=== PATIENT | male | born 1985 | race Caucasian/White ===

== ENCOUNTER 2016-05-03 10:30 | Observation (INO) | payer OTHER ==
[~2016-05-03] VITALS: Ht 185.4 cm; Wt 99.1 kg
[2016-05-03] VITALS (8 sets, daily range): BP systolic 110–141; BP diastolic 59–84
--- NOTE | 2016-05-03 11:06 | DIAGNOSTIC IMAGING REPORT ---
PROCEDURE: XR FOREARM - RIGHT INDICATION: TRAUMA/INJURY TECHNIQUE: AP and lateral views. COMPARISON: None. FINDINGS: Comminuted impaction fracture of the distal radius. IMPRESSION: 1. Comminuted impaction fracture distal radius.
--- NOTE | 2016-05-03 11:45 | DIAGNOSTIC IMAGING REPORT ---
PROCEDURE: CT CERVICAL SPINE W/O CONTRAST INDICATION: TRAUMA/INJURY TECHNIQUE: Noncontrast axial images with sagittal and coronal reformations. COMPARISON: None. FINDINGS: Osseous structures and disc spaces are normal. No evidence of an acute process or fracture. Alignment is normal. IMPRESSION: 1. Negative CT cervical spine. No evidence of an acute process or fracture.
--- NOTE | 2016-05-03 12:11 | ED CLINICAL REPORT ---
Clinical Report - Physicians/Mid Levels [facility] [address] [place] [address] 05/03/2016 10:30 Patient: SUZANNE BERG Time Seen: 1032. Arrived- By ambulance. Historian- patient and EMS personnel. HISTORY OF PRESENT ILLNESS Location of injuries- right wrist. Chief Complaint: FALL. This occurred just prior to arrival. Occurred at work. Fell 8-10 feet and landed on a hard surface. The patient complains of moderate pain. No blow to the head, neck pain, loss of consciousness or seizure. Not dazed. (PT initially c/o pain, per medics, but pt currently denies pain.). REVIEW OF SYSTEMS No numbness, dizziness, loss of vision, hearing loss or chest pain. No difficulty breathing, weakness, headache, nausea or abdominal pain. No laceration, fever, vomiting or urinary problems. All systems otherwise negative, except as recorded above. PAST HISTORY Problems: no known problems. Additional Surgeries: no known surgeries. Medications: None. Allergies: No Known Drug Allergy. SOCIAL HISTORY Never smoker. Occasional alcohol use. No drug use. ADDITIONAL NOTES The nursing notes have been reviewed. PHYSICAL EXAM Vital Signs: 05/03/2016 10:43 BP: 109/65. HR: 81. RR: 20. O2 saturation: 95%. Temp: 97.5 F. Have been reviewed. Appearance: Alert. Oriented X3. No acute distress. (PT is in obvious discomfort.). Head: Head non-tender. No swelling of head. Eyes: Pupils equal, round and reactive to light. EOM intact. ENT: No dental injury. Neck: Neck non-tender. (ROM not tested, secondary to c-spine precautions.). CVS: Heart sounds normal. Pulses normal. Respiratory: Breath sounds normal. Chest nontender. Abdomen: No visible injury. Soft and nontender. Back: No tenderness. Skin: Skin intact. Skin warm and dry. Normal skin color. Normal skin turgor. Extremities: Right wrist: moderate tenderness, swelling and deformity consistent with a distal forearm fracture located in the dorsal and volar aspect of the wrist. Limited ROM. Neurovascular intact distally. No erythema, laceration, abrasion, ecchymosis or puncture wound. No foreign body. No joint effusion. Pelvis stable. No lower extremity edema. Neuro: Oriented X 3. No motor deficit. No sensory deficit. LABS, X-RAYS, AND EKG Chest X-ray: No acute disease. Normal lung markings present. Normal heart size. Mediastinum normal. Great vessels normal. Soft tissues normal. No infiltrate. No fracture. No bony lesion present. Views: AP (portable). Technique: good. The X-rays were independently viewed by me, interpreted by the radiologist and contemporaneously by me and discussed with the radiologist. Prior films were not available for comparison. Rt Elbow X-ray: No fracture. Normal alignment. No bony lesion, air in the soft tissue or foreign body. Soft tissues normal. Joint spaces normal. Views: 2 view elbow series. Technique: good. The X-rays were independently viewed by me, interpreted by the radiologist and contemporaneously by me and discussed with the radiologist. Prior films were not available for comparison. Rt Wrist X-ray: Displaced, comminuted, intraarticular fracture of the distal radius. No angulated right radius fracture. Joint spaces abnormal. Air present in the soft tissue. Foreign body present. Soft tissue swelling. Views: AP, lateral and oblique. Technique: good. The X-rays were independently viewed by me, interpreted by the radiologist and contemporaneously by me and discussed with the radiologist. Prior films were not available for comparison. CT C-Spine: No acute findings. Soft tissue normal. No fracture or subluxation. No bony lesion. The study was independently viewed by me, interpreted by the radiologist and contemporaneously by me and discussed with the radiologist. Prior studies were not available for comparison. CT Abdomen: Normal study. Normal aorta. Normal liver, spleen, pancreas, gallbladder and adrenals. Normal kidneys. Bladder normal. No mass. No free fluid. No fracture or dislocation. Study type: trauma. Abdominal CT performed with IV contrast. The study was independently viewed by me, interpreted by the radiologist and contemporaneously by me and discussed with the radiologist. Prior studies were not available for comparison. Laboratory Tests: [id number]: (DONTAE: 05/04/2016 05:55) ( MsgRcvd 05/04/2016 07:51) Final results Test Result Flag Units (Reference) C-REACTIVE PROTEIN 2.3 H mg/dL (0.0-0.9) CBC w Diff: (DONTAE: 05/03/2016 10:40) ( [facility] 05/03/2016 11:55) Final results Test Result Flag Units (Reference) WHITE BLOOD COUNT 6.5 K/uL (4.5-11.5) RED BLOOD COUNT 4.69 M/uL (4.50-5.90) HEMOGLOBIN 14.2 gm/dL (13.5-17.5) HEMATOCRIT 42.0 % (41.0-53.0) MEAN CELL VOLUME 90 fL (80-100) MEAN CORPUSCULAR HGB 30 pg (26-34) MEAN CORPUSCULAR HGB CONC 34 g/dL (31-37) RED CELL DISTRIBUTION WIDTH 12.5 % (11.6-14.8) PLATELET COUNT 199 K/uL (150-400) NEUTROPHIL % 45.3 L % (50-75) LYMPH % 45.7 H % (25-40) MONO % 6.7 % (3-14) EOSINOPHIL % 2.1 % (0-4) BASOPHIL % 0.2 % (0-2) PT with INR: (DONTAE: 05/03/2016 10:40) ( [facility] 05/03/2016 11:58) Final results Test Result Flag Units (Reference) INR 1.0 (0.8-1.2) Low Intensity Therapy: INR 1.5-2.0 PT range 18.5-23.1Mod.Intensity Therapy: INR 2.0-3.0 PT range 23.1-31.5High Intensity Therapy: INR 2.5-3.5 PT range 27.4-35.5High Intensity Therapy 2: INR 3.0-4.0 PT range 31.5-39.3 CMP: (DONTAE: 05/03/2016 10:40) ( [facility] 05/03/2016 11:56) Final results Test Result Flag Units (Reference) GLUCOSE 114 H mg/dL (70-110) BUN 16 mg/dL (7-18) CREATININE 1.0 mg/dL (0.6-1.3) Estimated GFR >60 mL/min Estimated GFR- >60 mL/min Note: Persistent reduction over 3 months in eGFR<60 mL/min/1.73 m2 defines CKD. Patients with eGFR values>=60 mL/min/1.73 m2 may also have CKD if evidence ofpersistent proteinuria. Additional information may be foundat [email or web address].org. SODIUM 139 mmol/L (136-145) POTASSIUM 3.7 mmol/L (3.5-5.1) CHLORIDE 103 mmol/L (98-107) CARBON DIOXIDE 25 mmol/L (21-32) CALCIUM 9.1 mg/dL (8.5-10.1) TOTAL PROTEIN 7.5 g/dL (6.4-8.2) ALBUMIN 4.1 g/dL (3.3-5.0) BILIRUBIN, TOTAL 0.5 mg/dL (0.0-1.0) ALKALINE PHOSPHATASE 68 U/L (46-116) AST (SGOT) 26 U/L (15-37) ALT (SGPT) 47 U/L (12-78) . Pulse Oximetry: 05/03/2016 10:43 O2 saturation: 95%. (FIO2 - room air). Interpretation: normal. PROGRESS AND PROCEDURES Course of Care: Pt was given IV Dilaudid and worked up for his injuries. Other than the R wrist fx, pt's work-up was negative. Pt later began to complain of R elbow pain, but x-ray of this was also negative. Pt was evaluated by ortho in the ED, and transferred straight to the OR for repair of his fx. Discussed case with health care provider (Courtney/ortho). Reviewed test results and need for additional work-up. Agreed upon treatment plan and decision to admit. Health care provider will see patient in ED. Patient counseled in person regarding the patient's stable but serious condition, test results, diagnosis and need for admission and surgery. Concerns were addressed. Old medical records reviewed. Disposition: Admitted to Acute Care. Condition: stable. CLINICAL IMPRESSION Comminuted and intraarticular fracture of the distal right radius. Fall from scaffold. (Electronically signed by Anahy Bradley MD 05/07/2016 7:33) Addenda SUZANNE Mohamud VisitID: [id number] Date: 05/03/2016 05/03/2016 13:32 Discharge vital signs: BP: 126/69 P: 98 O2: 100 Pain: 4/10 RR: 18 (Electronically signed by Steffanie Eubanks R.N. 05/03/2016 13:32)
--- NOTE | 2016-05-03 12:11 | ED CLINICAL REPORT ---
Clinical Report - Physicians/Mid Levels [facility] [address] [place] [address] 05/03/2016 10:30 Patient: SUZANNE BERG Time Seen: 1032. Arrived- By ambulance. Historian- patient and EMS personnel. HISTORY OF PRESENT ILLNESS Location of injuries- right wrist. Chief Complaint: FALL. This occurred just prior to arrival. Occurred at work. Fell 8-10 feet and landed on a hard surface. The patient complains of moderate pain. No blow to the head, neck pain, loss of consciousness or seizure. Not dazed. (PT initially c/o pain, per medics, but pt currently denies pain.). REVIEW OF SYSTEMS No numbness, dizziness, loss of vision, hearing loss or chest pain. No difficulty breathing, weakness, headache, nausea or abdominal pain. No laceration, fever, vomiting or urinary problems. All systems otherwise negative, except as recorded above. PAST HISTORY Problems: no known problems. Additional Surgeries: no known surgeries. Medications: None. Allergies: No Known Drug Allergy. SOCIAL HISTORY Never smoker. Occasional alcohol use. No drug use. ADDITIONAL NOTES The nursing notes have been reviewed. PHYSICAL EXAM Vital Signs: 05/03/2016 10:43 BP: 109/65. HR: 81. RR: 20. O2 saturation: 95%. Temp: 97.5 F. Have been reviewed. Appearance: Alert. Oriented X3. No acute distress. (PT is in obvious discomfort.). Head: Head non-tender. No swelling of head. Eyes: Pupils equal, round and reactive to light. EOM intact. ENT: No dental injury. Neck: Neck non-tender. (ROM not tested, secondary to c-spine precautions.). CVS: Heart sounds normal. Pulses normal. Respiratory: Breath sounds normal. Chest nontender. Abdomen: No visible injury. Soft and nontender. Back: No tenderness. Skin: Skin intact. Skin warm and dry. Normal skin color. Normal skin turgor. Extremities: Right wrist: moderate tenderness, swelling and deformity consistent with a distal forearm fracture located in the dorsal and volar aspect of the wrist. Limited ROM. Neurovascular intact distally. No erythema, laceration, abrasion, ecchymosis or puncture wound. No foreign body. No joint effusion. Pelvis stable. No lower extremity edema. Neuro: Oriented X 3. No motor deficit. No sensory deficit. LABS, X-RAYS, AND EKG Chest X-ray: No acute disease. Normal lung markings present. Normal heart size. Mediastinum normal. Great vessels normal. Soft tissues normal. No infiltrate. No fracture. No bony lesion present. Views: AP (portable). Technique: good. The X-rays were independently viewed by me, interpreted by the radiologist and contemporaneously by me and discussed with the radiologist. Prior films were not available for comparison. Rt Elbow X-ray: No fracture. Normal alignment. No bony lesion, air in the soft tissue or foreign body. Soft tissues normal. Joint spaces normal. Views: 2 view elbow series. Technique: good. The X-rays were independently viewed by me, interpreted by the radiologist and contemporaneously by me and discussed with the radiologist. Prior films were not available for comparison. Rt Wrist X-ray: Displaced, comminuted, intraarticular fracture of the distal radius. No angulated right radius fracture. Joint spaces abnormal. Air present in the soft tissue. Foreign body present. Soft tissue swelling. Views: AP, lateral and oblique. Technique: good. The X-rays were independently viewed by me, interpreted by the radiologist and contemporaneously by me and discussed with the radiologist. Prior films were not available for comparison. CT C-Spine: No acute findings. Soft tissue normal. No fracture or subluxation. No bony lesion. The study was independently viewed by me, interpreted by the radiologist and contemporaneously by me and discussed with the radiologist. Prior studies were not available for comparison. CT Abdomen: Normal study. Normal aorta. Normal liver, spleen, pancreas, gallbladder and adrenals. Normal kidneys. Bladder normal. No mass. No free fluid. No fracture or dislocation. Study type: trauma. Abdominal CT performed with IV contrast. The study was independently viewed by me, interpreted by the radiologist and contemporaneously by me and discussed with the radiologist. Prior studies were not available for comparison. Laboratory Tests: [id number]: (DONTAE: 05/04/2016 05:55) ( MsgRcvd 05/04/2016 07:51) Final results Test Result Flag Units (Reference) C-REACTIVE PROTEIN 2.3 H mg/dL (0.0-0.9) CBC w Diff: (DONTAE: 05/03/2016 10:40) ( [facility] 05/03/2016 11:55) Final results Test Result Flag Units (Reference) WHITE BLOOD COUNT 6.5 K/uL (4.5-11.5) RED BLOOD COUNT 4.69 M/uL (4.50-5.90) HEMOGLOBIN 14.2 gm/dL (13.5-17.5) HEMATOCRIT 42.0 % (41.0-53.0) MEAN CELL VOLUME 90 fL (80-100) MEAN CORPUSCULAR HGB 30 pg (26-34) MEAN CORPUSCULAR HGB CONC 34 g/dL (31-37) RED CELL DISTRIBUTION WIDTH 12.5 % (11.6-14.8) PLATELET COUNT 199 K/uL (150-400) NEUTROPHIL % 45.3 L % (50-75) LYMPH % 45.7 H % (25-40) MONO % 6.7 % (3-14) EOSINOPHIL % 2.1 % (0-4) BASOPHIL % 0.2 % (0-2) PT with INR: (DONTAE: 05/03/2016 10:40) ( [facility] 05/03/2016 11:58) Final results Test Result Flag Units (Reference) INR 1.0 (0.8-1.2) Low Intensity Therapy: INR 1.5-2.0 PT range 18.5-23.1Mod.Intensity Therapy: INR 2.0-3.0 PT range 23.1-31.5High Intensity Therapy: INR 2.5-3.5 PT range 27.4-35.5High Intensity Therapy 2: INR 3.0-4.0 PT range 31.5-39.3 CMP: (DONTAE: 05/03/2016 10:40) ( [facility] 05/03/2016 11:56) Final results Test Result Flag Units (Reference) GLUCOSE 114 H mg/dL (70-110) BUN 16 mg/dL (7-18) CREATININE 1.0 mg/dL (0.6-1.3) Estimated GFR >60 mL/min Estimated GFR- >60 mL/min Note: Persistent reduction over 3 months in eGFR<60 mL/min/1.73 m2 defines CKD. Patients with eGFR values>=60 mL/min/1.73 m2 may also have CKD if evidence ofpersistent proteinuria. Additional information may be foundat [email or web address].org. SODIUM 139 mmol/L (136-145) POTASSIUM 3.7 mmol/L (3.5-5.1) CHLORIDE 103 mmol/L (98-107) CARBON DIOXIDE 25 mmol/L (21-32) CALCIUM 9.1 mg/dL (8.5-10.1) TOTAL PROTEIN 7.5 g/dL (6.4-8.2) ALBUMIN 4.1 g/dL (3.3-5.0) BILIRUBIN, TOTAL 0.5 mg/dL (0.0-1.0) ALKALINE PHOSPHATASE 68 U/L (46-116) AST (SGOT) 26 U/L (15-37) ALT (SGPT) 47 U/L (12-78) . Pulse Oximetry: 05/03/2016 10:43 O2 saturation: 95%. (FIO2 - room air). Interpretation: normal. PROGRESS AND PROCEDURES Course of Care: Pt was given IV Dilaudid and worked up for his injuries. Other than the R wrist fx, pt's work-up was negative. Pt later began to complain of R elbow pain, but x-ray of this was also negative. Pt was evaluated by ortho in the ED, and transferred straight to the OR for repair of his fx. Discussed case with health care provider (Courtney/ortho). Reviewed test results and need for additional work-up. Agreed upon treatment plan and decision to admit. Health care provider will see patient in ED. Patient counseled in person regarding the patient's stable but serious condition, test results, diagnosis and need for admission and surgery. Concerns were addressed. Old medical records reviewed. Disposition: Admitted to Acute Care. Condition: stable. CLINICAL IMPRESSION Comminuted and intraarticular fracture of the distal right radius. Fall from scaffold. (Electronically signed by Anahy Bradley MD 05/07/2016 7:33) Addenda SUZANNE Mohamud VisitID: [id number] Date: 05/03/2016 05/03/2016 13:32 Discharge vital signs: BP: 126/69 P: 98 O2: 100 Pain: 4/10 RR: 18 (Electronically signed by Steffanie Eubanks R.N. 05/03/2016 13:32)
--- NOTE | 2016-05-03 12:11 | ED ORDER SUMMARY ---
..... Patient: SUZANNE BERG OrderSheet [facility] VisitID: [id number] [address] [place] [address] 31y, M Registration Date/Time: 05/03/2016 ORDER SHEET Weight: 90.7 kg (stated) Allergies: No Known Drug Allergy GENERAL ORDERS: Forearm Right Urgent (10:41 05/03/2016 Shonda MORALES) (Ack 11:02 Francisca) (11:38 SStone R.N.) CT Cervical Spine wo Cont Urgent (10:41 05/03/2016 Shonda MORALES) (Ack 11:02 Francisca) (11:38 SStone R.N.) CT Abd/Pel w Cont (No) (N/A) Urgent (10:42 05/03/2016 Shonda MORALES) (Ack 11:02 Francisca) (11:38 SStone R.N.) NPO (10:45 05/03/2016 Shonda MORALES) (11:38 SStone R.N.) Elbow 3 or 4V Left Urgent (11:20 05/03/2016 SStone R.N. verbal order read back to Shonda MORALES) (Ack 11:22 Francisca) (12:22 SStone R.N.) Chest 1V Urgent (11:39 05/03/2016 Shonda MORALES) (Ack 12:00 Francisca) (12:22 SStone R.N.) CBC w Diff Urgent (11:40 05/03/2016 Shonda MORALES) (Ack 11:58 Francisca) (12:22 SStone R.N.) CMP Urgent (11:40 05/03/2016 Shonda MORALES) (Ack 11:58 Francisca) (12:22 SStone R.N.) PT with INR Urgent (11:40 05/03/2016 Shonda MORALES) (Ack 11:58 Francisca) (12:22 SStone R.N.) MEDICATION ORDERS: IV FLUIDS: IV NS : initial bolus 1000 mL (1000 mL/hr), then none - (NOW) (10:45 05/03/2016 Shonda MORALES) (11:20 SStone R.N.) Dilaudid IV 2 mg (HIGH ALERT MEDICATION, NOW) (10:45 05/03/2016 Shonda MORALES) (11:20 SStone R.N.) Toradol IV 30 mg (NOW) (10:45 05/03/2016 Shonda MORALES) (11:19 SStone R.N.) Zofran IV 4 mg (NOW) (10:57 05/03/2016 Shonda MORALES) (11:19 SStone R.N.) Dilaudid IV 1 mg (HIGH ALERT MEDICATION, NOW) (12:14 05/03/2016 Shonda MORALES) (12:23 SStone R.N.) Benadryl IV 25 mg (NOW) (12:23 05/03/2016 SStone R.N. verbal order read back to Shonda MORALES) (12:24 SStone R.N.) ORDER SHEET NOTES: [Electronically signed by Steffanie Eubanks R.N. (13:30 05/03/2016)] [Electronically signed by Anahy Bradley MD (07:33 05/07/2016)] [Electronically locked/signed by Steffanie Eubanks R.N. (13:30 05/03/2016)]
--- NOTE | 2016-05-03 12:11 | ED NURSING NOTES ---
Clinical Report - Nurses [place] [address] [place] [address] 05/03/2016 10:30 Patient: SUZANNE BERG TRIAGE Triage time 10:32. Acuity: LEVEL 3. Chief Complaint: FALL 8-10 FEET, onto a concrete surface and landed on their arms with hands extended. --10:41 Setffanie Eubanks R.N. 10:43 05/03/16. BP: 109/65. HR: 81. RR: 20. O2 saturation: 95%. Temp: 97.5 F. --10:47 Steffanie Eubanks R.N. Weight: 90.7 kg stated. Height/Length: 73 inches Per Patient. BMI: 26.4. --10:34 Steffanie Eubanks R.N. Medications None. --10:33 Steffanie Eubanks R.N. Allergies No Known Drug Allergy. --10:33 Steffanie Eubanks R.N. History Arrived by EMS, and (49). Historian: patient. This occurred just prior to arrival. The patient had loss of consciousness. (none). He has had extremity pain (Right wrist deformity). He has had back pain. Treatment GLOBAL PROGRAM DIRECTOR: Splint. See EMS report. Trauma activation: Pre-hospital notification of patient arrival was received. PAST MEDICAL HX: Negative. Tetanus status: more than 5 years ago. SURGERY HX: No history of previous surgery. SOCIAL HX: Never smoker. Alcohol use; consumes beer occasionally. No drug use. --10:41 Steffanie Eubanks R.N. Interventions ID band on patient. To treatment room. --10:41 Steffanie Eubanks R.N. PHYSICAL ASSESSMENT To room via stretcher. GENERAL / NEURO / PSYCH: Oriented X 4. HEENT: Pupils equal, round and reactive to light. RESPIRATORY: Respirations not labored. CVS: Normal heart rate and rhythm. GI / : Abdomen soft and nontender. EXTREMITIES: Limited ROM present in the right wrist. Neuro-vascular status intact to the extremity. SKIN: Skin is warm and dry. --10:42 Steffanie Eubanks R.N. NURSING PROGRESS NOTES Patient placed on backboard (removed by Dr. Machado). Cold pack applied. Two patient identifiers checked. Call light placed in reach. Side rails up x 2. Bed placed in lowest position. ED physician notified. --10:43 Steffanie Eubanks R.N. 11:00 05/03/2016 Site #1 started via IV in the left antecubital space with an 18g angiocath. Saline lock flushed with 10 mL saline. --11:19 Steffanie Eubanks R.N. 11:05 05/03/2016 Dilaudid (HYDROmorphone HCl PF) IVP 2 mg given over 2 minute(s) via site #1. --11:20 Steffanie Eubanks R.N. 11:19 05/03/2016 Zofran (Ondansetron HCl) IVP 4 mg given. via site #1. --11:19 Steffanie Eubanks R.N. 11:19 05/03/2016 Toradol IVP 30 mg given over 2 minute(s) via site #1. --11:19 Steffanie Eubanks R.N. 11:20 05/03/2016 Started bag #1 1000 mL IV Fluids IV NS (Saline); at 1000 mL/hr over 1 hour(s) via site #1 --11:20 Steffanie Eubanks R.N. ( Patient out to CT). --11:38 Steffanie Eubanks R.N. ( Ortho at bedside.). --12:00 Steffanie Eubanks R.N. late entry - 11:05: Pt. was given Dilaudid 2 mg, zofran 4 mg and toradol 30 mg. Within 30 seconds the patient's left arm distal to the IV site turned bright red, warm to touch and had raised hives. was notified, verbal order for 25 mg of Benadryl given. --12:00 Steffanie Eubanks R.N. late entry - 1115 Pt. BP 80s after 2 mg Dilaudid, IV bolus started. BP up to 119/. --12:01 Steffanie Eubanks R.N. 12:01 05/03/16. BP: 117/68. HR: 102. RR: 21. O2 saturation: 93%. Pain level now: 06/11. --12:02 Steffanie Eubanks R.N. 11:30 05/03/16. Pain level now: 06/11. --12:03 Steffanie Eubanks R.N. ( C-collar removed by janette MORALES). --12:06 Steffanie Eubanks R.N. 11:10 05/03/2016 Benadryl (DiphenhydrAMINE HCl) IVP 25 mg given over 2 minute(s) via site #1. --12:24 Steffanie Eubanks R.N. 12:23 05/03/2016 Dilaudid (HYDROmorphone HCl PF) IVP 1 mg given over 2 minute(s) via site #1. --12:23 Steffanie Eubanks R.N. ( Silver colored bracelet cut off and given to cousin at bedside.). --12:34 Steffanie Eubanks R.N. 12:35 05/03/16. BP: 125/77. HR: 101. RR: 18. O2 saturation: 97%. --12:35 Steffanie Eubanks R.N. 13:00 05/03/2016 IV Fluids IV NS Discontinued: bag #1 infused. Total amount infused: 1000 mL. IV patency established. IV site checked: no pain, redness, or swelling. IV flushed thoroughly. --13:28 Steffanie Eubanks R.N. DISPOSITION / DISCHARGE Cardiac rhythm: normal sinus rhythm. Departure time: 13:26. Condition at departure: stable. Admitted to Acute Care via Surgery. Transported via stretcher by nurse and transport team. Report was given to a nurse in person. Report included patient's care, treatment, medications, reviewed medication reconcilliation, and condition (including any recent changes or anticipated changes). All questions were answered. Report was acknowledged. --13:27 Steffanie Eubanks R.N. Locked/Released at 05/03/2016 13:30 by Steffanie Eubanks R.N.
--- NOTE | 2016-05-03 12:11 | ED ORDER SUMMARY ---
..... Patient: SUZANNE BERG OrderSheet [facility] VisitID: [id number] [address] [place] [address] 31y, M Registration Date/Time: 05/03/2016 ORDER SHEET Weight: 90.7 kg (stated) Allergies: No Known Drug Allergy GENERAL ORDERS: Forearm Right Urgent (10:41 05/03/2016 Shonda MORALES) (Ack 11:02 Francisca) (11:38 SStone R.N.) CT Cervical Spine wo Cont Urgent (10:41 05/03/2016 Shonda MORALES) (Ack 11:02 Francisca) (11:38 SStone R.N.) CT Abd/Pel w Cont (No) (N/A) Urgent (10:42 05/03/2016 Shonda MORALES) (Ack 11:02 Francisca) (11:38 SStone R.N.) NPO (10:45 05/03/2016 Shonda MORALES) (11:38 SStone R.N.) Elbow 3 or 4V Left Urgent (11:20 05/03/2016 SStone R.N. verbal order read back to Shonda MORALES) (Ack 11:22 Francisca) (12:22 SStone R.N.) Chest 1V Urgent (11:39 05/03/2016 Shonda MORALES) (Ack 12:00 Francisca) (12:22 SStone R.N.) CBC w Diff Urgent (11:40 05/03/2016 Shonda MORALES) (Ack 11:58 Francisca) (12:22 SStone R.N.) CMP Urgent (11:40 05/03/2016 Shonda MORALES) (Ack 11:58 Francisca) (12:22 SStone R.N.) PT with INR Urgent (11:40 05/03/2016 Shonda MORALES) (Ack 11:58 Francisca) (12:22 SStone R.N.) MEDICATION ORDERS: IV FLUIDS: IV NS : initial bolus 1000 mL (1000 mL/hr), then none - (NOW) (10:45 05/03/2016 Shonda MORALES) (11:20 SStone R.N.) Dilaudid IV 2 mg (HIGH ALERT MEDICATION, NOW) (10:45 05/03/2016 Shonda MORALES) (11:20 SStone R.N.) Toradol IV 30 mg (NOW) (10:45 05/03/2016 Shonda MORALES) (11:19 SStone R.N.) Zofran IV 4 mg (NOW) (10:57 05/03/2016 Shonda MORALES) (11:19 SStone R.N.) Dilaudid IV 1 mg (HIGH ALERT MEDICATION, NOW) (12:14 05/03/2016 Shonda MORALES) (12:23 SStone R.N.) Benadryl IV 25 mg (NOW) (12:23 05/03/2016 SStone R.N. verbal order read back to Shonda MORALES) (12:24 SStone R.N.) ORDER SHEET NOTES: [Electronically signed by Steffanie Eubanks R.N. (13:30 05/03/2016)] [Electronically signed by Anahy Bradley MD (07:33 05/07/2016)] [Electronically locked/signed by Steffanie Eubanks R.N. (13:30 05/03/2016)]
--- NOTE | 2016-05-03 12:13 | DIAGNOSTIC IMAGING REPORT ---
PROCEDURE: CT ABD/PELVIS WITH CONTRAST CLINICAL INDICATION: Fell 10 feet, initial encounter TECHNIQUE: 100 ml of Isovue 300 were injected intravenously and axial images were obtained of the entire abdomen and pelvis with sagittal and coronal reformations. COMPARISON: None. FINDINGS: ABDOMEN: Lung bases are clear. Heart size is normal. Liver, gallbladder, pancreas, spleen (splenule) adrenal glands, kidneys and abdominal aorta are normal. Nonspecific bowel gas pattern. PELVIS: Normal appendix. There is no pelvic mass or free fluid. Slight irregularity of the right T12 facets suggestive of volume averaging artifact rather than a nondisplaced fracture. Normal alignment of the lumbar spine with Schmorl 's nodes from T11-L3. IMPRESSION: 1. No acute changes 2. Results discussed with Dr. Bradley All CT scans at this facility use dose modulation, iterative reconstruction, and/or weight-based dosing when appropriate to reduce radiation dose to as low as reasonably achievable.
--- NOTE | 2016-05-03 13:23 | DIAGNOSTIC IMAGING REPORT ---
PROCEDURE: XR CHEST 1 VIEW INDICATION: Preop, chest pain. Initial encounter. TECHNIQUE: Portable AP view 12:21 p.m. COMPARISON: None. FINDINGS: Poor inspiration but lungs are clear. Heart and mediastinum are normal. Thorax is normal. IMPRESSION: 1. Poor inspiration but otherwise negative chest.
--- NOTE | 2016-05-03 13:26 | DIAGNOSTIC IMAGING REPORT ---
PROCEDURE: XR ELBOW 3 OR 4 VIEWS - LEFT INDICATION: TRAUMA/INJURY TECHNIQUE: Five views COMPARISON: None. FINDINGS: Nondisplaced radial head fracture. There is no dislocation. Prominence of the anterior fat pad. IMPRESSION: 1. Nondisplaced left radial head fracture.
--- NOTE | 2016-05-03 13:52 | HISTORY AND PHYSICAL ---
ADMITTED: 05/03/2016 CHIEF COMPLAINT: 1. Right wrist pain HISTORY OF PRESENT ILLNESS: The patient was in his usual state of good health when he suffered a fall and landed on his outstretched right hand. He fell off the top of a trailer says about 8 or 10 feet. He denies any other serious nor even minor aches or pains. He has had a CT scan, which was basically from neck to pelvis and was reported by the radiologist as being negative and I did look at the actual views on the C- spine and do not see any fracture there. The patient does have a severe fracture of his distal right radius and is being admitted for repair of the same. MEDICAL/SURGICAL HISTORY: Past history is completely negative. MEDICATIONS: 1. He is on no medications. ALLERGIES: 1. HE HAS NO KNOWN ALLERGIES. SOCIAL HISTORY: The patient is a nonsmoker. FAMILY HISTORY: Noncontributory. REVIEW OF SYSTEMS: He has no other serious medical illnesses and specifically denied any heart, lung, kidney disease, any peptic ulcer disease, diabetes, AIDS, cancer, tumor, tuberculosis, peptic ulcer disease, hepatitis. His review of systems, he has had no loss of consciousness and he says he has no cough, congestion, chest pain, shortness of breath, did have an upper respiratory infection last week, but that has completely resolved now and he has not had any fever or chills. He has no nausea, vomiting, and has not had any diarrhea, has had no dysuria, has no other musculoskeletal complaints. PHYSICAL EXAMINATION: HEENT: Shows the head to be normocephalic and atraumatic. His eyes are clear. His hearing is grossly normal. There is no drainage from the ear canals. Mouth and posterior oropharynx are clear. The tongue is midline. The teeth are in good repair. NECK: He has no jugular venous distention. He is able to move his neck with minimal discomfort. BACK: There is no tenderness in the cervical spine or in the thoracic, lumbar or sacral spine or the CVA regions on both sides. ABDOMEN: Soft and flat. Bowel sounds are active. CHEST: Symmetrical, there is no tenderness to palpation of the rib cage. HEART: Regular rate and rhythm without murmur. LUNGS: Clear to auscultation. EXTREMITIES: Lower Extremities: He moves without any crepitation, without any discomfort whatsoever and has active dorsiflexion, plantarflexion of the toes. Upper Extremities: The right wrist demonstrates a typical silver fork type of deformity. There is some 2-3+ edema at the wrist and he is quite tender over the distal radius. More distally in the fingers, he has quite markedly diminished sensation in the thumb, index, and long finger. Sensation is relatively maintained in the ring and small finger. The fingers themselves are warm and pink. Capillary refilling is immediate. He has no open skin wounds, and x-ray show him to have a comminuted and displaced fracture involving the distal radius. IMPRESSION: 1. Comminuted displaced distal radius fracture with median nerve contusion, possible compartment syndrome. PLAN: For immediate surgery, reduction of the fracture, either external or internal fixation, depending on the findings of compartment pressure, measuring and if his compartment pressures are high enough it would be best to open and leave it open and probably put him in an external fixture for the present, but if they are not excessively high then we can do a plate and screw fixation and try to repair the fracture definitively at this point. I have explained all this to him and he accepts and agrees. He does have a concern about the cost of it and who would pay for it. He is from [place] and is concerned that his [place] [facility] would pay for the care here. I do not know whether it would or would not and I told that to him and also his friend who is with him, but I do believe it is in his best interest to have the problem taken care of as soon as possible, as there certainly is a risk of permanent nerve damage, which does not completely go away if we do the surgery urgently, but the sooner we can relieve the pressure on the nerve, the better for him and the more likely that he would recover. I did explain to him that I cannot promise that. There is a very real possibility he could have permanent numbness in the fingers and problems with the use of the hand and that it is unlikely he is going to regain completely normal function of it and particularly completely normal range of motion of it under any circumstances, but the best would be to deal with the problem as soon as possible and he understands this as well. Right now he is trying to decide whether to stay or to go. I hope that he will stay. I have encouraged him to do so and I explained that I think it is in his best interest and certainly there is a risk if he does not get the problem taken care of as soon as possible and he understands this as well.
--- NOTE | 2016-05-03 16:50 | Postoperative Progress Note ---
Postop Progress Note Preoperate Diagnosis: Fracture right radius, compartment syndrome RUE Postoperative Diagnosis: Same Surgeon: Yo Valdez MD Anesthesia: General ETT Findings: Comminuted displaced distal right radius fracture. Compartment syndrome right volar forearm Procedure: ORIF right radius, fasciotomy right forearm. Complications? No Condition: Stable EBL: 50cc Blood Administered: 0 Specimen(s) removed? No Grafts or Implants? Yes Graft/Implant type: Volar radius plate and screws . (See nursing notes for details of grafts/implants)
--- NOTE | 2016-05-03 19:37 | OPERATIVE REPORT ---
DATE OF SURGERY: 05/03/2016 SURGEON: BECKY DAVIS MD PREOPERATIVE DIAGNOSIS: 1. Comminuted and displaced distal right radius fracture and probable compartment syndrome, median nerve contusion of the right wrist and forearm POSTOPERATIVE DIAGNOSIS: 1. Comminuted displaced fracture of the distal right radius and compartment syndrome of the right forearm, median nerve contusion PROCEDURE PERFORMED: 1. Open reduction, internal fixation of the right distal radius fracture and fasciotomy CONDITION: He is in stable condition. ESTIMATED BLOOD LOSS: 50 mL. COMPLICATIONS: None. PATHOLOGY SPECIMEN: Sent to laboratory were none. SURGICAL TECHNIQUE: The patient was taken to the operating room, where he was given a general anesthetic and a tourniquet was applied on the right arm. The arm was prepped and draped in the usual sterile fashion. After the sterile prepping and draping of the arm we then made a curving longitudinal incision over the volar radial aspect of the forearm and extending down to the wrist. This was carried generally down through subcutaneous tissue and down to the level of the fracture. He had a badly comminuted fracture of his distal radius and we were able to provisionally reduce the fracture with longitudinal traction and some flexion and volarly directed pressure on the hand and wrist and then placed a plate from the [employer] set into place and secured it with a single screw through the slot, drilling with the supplied drill, measuring with the depth gauge and placing the appropriate length of screw. We then went to place the distal screws through the holes, drilling through the supplied guide and reducing the fragments as we went to try and secure them in anatomic alignment. We were able to get very close to perfect anatomic alignment at the joint surface with some residual dorsal comminution. The ulnar screw holes, not the most distal ones in the plate, but the second most distal ones in the plate, there were 2 of the screws that are angled at the joint enough that it could not be absolutely certain that they were not impinging on the joint and so I redrilled those and used nonlocking screws on those after we completed the rest of the fixation, but with that, we had very secure fixation of the fracture and I closed him then just with simple interrupted 3-0 nylon suture for the skin only, basically done a fasciotomy by opening the fascia, but even by closing the skin after we got the skin closed I checked him with a compartment pressure monitor and the compartment pressures were 38-39. In the volar compartment the dorsal compartment was fine, but the volar compartment, it was certainly pie and at risk of causing further damage as median nerve, he basically had absent sensation in the median nerve distribution and significant swelling. The compartment was pretty tense before we even started the procedure and actually by aligning the fracture and securing it, the pressure was left, but it was not still at a point I would consider acceptable and so we took out some of the central sutures, resutured just very loosely leaving the skin gapped open about 6-10 mm and went back and rechecked the pressures. With that we had skin covering the tendons and there just was exposed muscle and subcutaneous fat and with that, then the pressures were in the low 20s, 22-24 at most, and so we left it that, dressed him with Xeroform and an ABD and had very loosely applied Webril and a volar splint and then we again very loosely applied Modesto bandages to hold it in place and once that was set up, he was awakened. He will be taken to the recovery room.
[2016-05-04 02:22] VITALS: BP 114/66
[2016-05-04 07:17] VITALS: BP 104/64
--- NOTE | 2016-05-04 08:32 | Progress Note ---
Subjective General Afebrile NMV intact in RUE this am. Splint is intact C/O mild to moderate pain in right wrist and left elbow. The Xray images from surgery didn't save as expected so i ordered a new Xray this am. Xrays of the left elbow show an undisplaced fracture of the radial neck. He has just mild tenderness and minimal edema at the elbow. He already has an injury to the RUE that he won't be able to use it much so i have not casted the LUE. I did explain the situation to him that he will need to be very careful with the use of both UEs and avoid forceful use of them. He understands and accepts. i also explained he will need a wound closure at the right wrist in the next 10-14 days and he would like to return home to [place] for further treatment. He fidencio be DCd to the care of his cousin who will drive him home today. I told him he is welcome to return here for F/U if he is unable to find someone to care for him at home. No other c/o and he is sitting up eating his breakfast this am. DC home.
[2016-05-04] MEDS ORDERED: OXYCODONE/ACETA1 TA1 PO (08:35)
--- NOTE | 2016-05-04 08:37 | Provider's Discharge Care Plan ---
Problem, Goal, Plan Problem List 1. Fracture of right wrist 2. Fracture of radial neck, left, closed
--- NOTE | 2016-05-04 08:37 | Provider's Discharge Care Plan ---
Problem, Goal, Plan Problem List 1. Fracture of right wrist 2. Fracture of radial neck, left, closed
[2016-05-04 09:02] VITALS: BP 104/61
--- NOTE | 2016-05-04 10:36 | DIAGNOSTIC IMAGING REPORT ---
PROCEDURE: XR WRIST 1 OR 2 VIEWS - RIGHT INDICATION: post op ORIF TECHNIQUE: Two views right wrist COMPARISON: Wrist films 05/03/2016 FINDINGS: A side plate and 11 screws are fixing the comminuted the distal radial fracture. Alignment is anatomic. IMPRESSION: 1. Distal radial fracture repair.
[2016-05-04 10:37] VITALS: BP 109/66
[2016-05-04 10:38] VITALS: BP 109/62
--- NOTE | 2016-05-07 07:33 | ED MAR SUMMARY ---
..... Medication Administration Record [facility] [address], [place] [address] Patient: SUZANNE BERG Visit ID: [id number] 31y, M Weight: 90.7 kg Height/Length: 73 in BMI: 26.4 ALLERGIES: No Known Drug Allergy Given 11:05/03/2016 Steffanie Eubanks R.N. Medication Administered: DILAUDID [IVP] (HYDROMORPHONE HCL PF), Dose: 2 mg IVP over 2 minute(s), Site: #1 left AC. Medication Ordered: Dilaudid IV 2 mg (HIGH ALERT MEDICATION, NOW). Given 11:05/03/2016 Steffanie Eubanks R.N. Medication Administered: BENADRYL [IVP] (DIPHENHYDRAMINE HCL), Dose: 25 mg IVP over 2 minute(s), Site: #1 left AC. Medication Ordered: Benadryl IV 25 mg (NOW). Given 11:05/03/2016 Steffanie Eubanks R.N. Medication Administered: TORADOL [IVP], Dose: 30 mg IVP over 2 minute(s), Site: #1 left AC. Medication Ordered: Toradol IV 30 mg (NOW). Given 11:05/03/2016 Steffanie Eubanks R.N. Medication Administered: ZOFRAN [IVP] (ONDANSETRON HCL), Dose: 4 mg IVP, Site: #1 left AC. Medication Ordered: Zofran IV 4 mg (NOW). Start 11:05/03/2016 Steffanie Eubanks R.N., Stop 13:00 05/03/2016 Steffanie Eubanks R.N. Medication Administered: IV NS (SALINE), Dose: IV Fluids over 1 hour(s), Rate: 1000 mL/hr, Dispensed: 1000 mL bag, Site: #1 left AC. Medication Ordered: IV NS : initial bolus 1000 mL (1000 mL/hr), then none - (NOW). Given 12:23 05/03/2016 Steffanie Eubanks R.N. Medication Administered: DILAUDID [IVP] (HYDROMORPHONE HCL PF), Dose: 1 mg IVP over 2 minute(s), Site: #1 left AC. Medication Ordered: Dilaudid IV 1 mg (HIGH ALERT MEDICATION, NOW).
--- NOTE | 2016-05-07 07:33 | ED DISCHARGE INSTRUCTIONS ---
Patient: SUZANNE BERG General Instructions [facility] VisitID: [id number] [address] [place] [address] 31y, M Registration Date/Time: 05/03/2016 Comminuted and intraarticular fracture of the distal right radius. Fall from scaffold. (Electronically signed by Anahy Bradley MD 05/07/2016 7:33)
--- NOTE | 2016-05-07 07:33 | ED DISCHARGE INSTRUCTIONS ---
Patient: SUZANNE BERG General Instructions [facility] VisitID: [id number] [address] [place] [address] 31y, M Registration Date/Time: 05/03/2016 Comminuted and intraarticular fracture of the distal right radius. Fall from scaffold. (Electronically signed by Anahy Bradley MD 05/07/2016 7:33)
--- NOTE | 2016-05-07 07:33 | ED MAR SUMMARY ---
..... Medication Administration Record [facility] [address], [place] [address] Patient: SUZANNE BERG Visit ID: [id number] 31y, M Weight: 90.7 kg Height/Length: 73 in BMI: 26.4 ALLERGIES: No Known Drug Allergy Given 11:05/03/2016 Steffanie Eubanks R.N. Medication Administered: DILAUDID [IVP] (HYDROMORPHONE HCL PF), Dose: 2 mg IVP over 2 minute(s), Site: #1 left AC. Medication Ordered: Dilaudid IV 2 mg (HIGH ALERT MEDICATION, NOW). Given 11:05/03/2016 Steffanie Eubanks R.N. Medication Administered: BENADRYL [IVP] (DIPHENHYDRAMINE HCL), Dose: 25 mg IVP over 2 minute(s), Site: #1 left AC. Medication Ordered: Benadryl IV 25 mg (NOW). Given 11:05/03/2016 Steffanie Eubanks R.N. Medication Administered: TORADOL [IVP], Dose: 30 mg IVP over 2 minute(s), Site: #1 left AC. Medication Ordered: Toradol IV 30 mg (NOW). Given 11:05/03/2016 Steffanie Eubanks R.N. Medication Administered: ZOFRAN [IVP] (ONDANSETRON HCL), Dose: 4 mg IVP, Site: #1 left AC. Medication Ordered: Zofran IV 4 mg (NOW). Start 11:05/03/2016 Steffanie Eubanks R.N., Stop 13:00 05/03/2016 Steffanie Eubanks R.N. Medication Administered: IV NS (SALINE), Dose: IV Fluids over 1 hour(s), Rate: 1000 mL/hr, Dispensed: 1000 mL bag, Site: #1 left AC. Medication Ordered: IV NS : initial bolus 1000 mL (1000 mL/hr), then none - (NOW). Given 12:23 05/03/2016 Steffanie Eubanks R.N. Medication Administered: DILAUDID [IVP] (HYDROMORPHONE HCL PF), Dose: 1 mg IVP over 2 minute(s), Site: #1 left AC. Medication Ordered: Dilaudid IV 1 mg (HIGH ALERT MEDICATION, NOW).
--- NOTE | 2016-05-07 07:33 | ED MED RECONCILIATION SUMMARY ---
Patient: SUZANNE BERG Medication Reconciliation Report [facility] VisitID: [id number] [address] [place] [address] 31y, M Registration Date/Time: 05/03/2016 Weight: 90.7 kg Height/Length: 73 in. BMI: 26.4 ALLERGIES: No Known Drug Allergy The patient's Home Medications are listed below: NONE. The source(s) of the original Home Medication information: Not obtained. The following Medications were given to the patient in the Emergency Department: Zofran [IVP] IVP 4 mg, administered: 05/03/2016 11:19:00 AM Toradol [IVP] IVP 30 mg, administered: 05/03/2016 11:19:00 AM Dilaudid [IVP] IVP 2 mg, administered: 05/03/2016 11:05:00 AM IV NS IV Fluids bolus 0, then 1000 mL/hr, administered: 05/03/2016 11:20:00 AM Dilaudid [IVP] IVP 1 mg, administered: 05/03/2016 12:23:00 PM Benadryl [IVP] IVP 25 mg, administered: 05/03/2016 11:10:00 AM The following Medications were prescribed to the patient: None.
--- NOTE | 2016-05-07 07:33 | ED MED RECONCILIATION SUMMARY ---
Patient: SUZANNE BERG Medication Reconciliation Report [facility] VisitID: [id number] [address] [place] [address] 31y, M Registration Date/Time: 05/03/2016 Weight: 90.7 kg Height/Length: 73 in. BMI: 26.4 ALLERGIES: No Known Drug Allergy The patient's Home Medications are listed below: NONE. The source(s) of the original Home Medication information: Not obtained. The following Medications were given to the patient in the Emergency Department: Zofran [IVP] IVP 4 mg, administered: 05/03/2016 11:19:00 AM Toradol [IVP] IVP 30 mg, administered: 05/03/2016 11:19:00 AM Dilaudid [IVP] IVP 2 mg, administered: 05/03/2016 11:05:00 AM IV NS IV Fluids bolus 0, then 1000 mL/hr, administered: 05/03/2016 11:20:00 AM Dilaudid [IVP] IVP 1 mg, administered: 05/03/2016 12:23:00 PM Benadryl [IVP] IVP 25 mg, administered: 05/03/2016 11:10:00 AM The following Medications were prescribed to the patient: None.
== END 2016-05-04 11:30 | disposition home or self-care (01) ==
LOC: ED SRH 10:30 → TRANS SRH 12:17 → SDC SRH 12:17 → TRANS SRH 12:18 → SDC SRH 18:10 → ACUTE2 SRH 18:11
PROVIDERS: ADMIT Orthopaedic Surgery
PROC: 0PSH04Z Reposition Right Radius with Internal Fixation Device, Open Approach (ICD-10-PCS; principal; 2016-05-03 13:30)
PROC: 0KN90ZZ Release Right Lower Arm and Wrist Muscle, Open Approach (ICD-10-PCS; principal; 2016-05-03 13:30)
DX: S52.501A Unspecified fracture of the lower end of right radius, initial encounter for closed fracture (principal); T79.A11A Traumatic compartment syndrome of right upper extremity, initial encounter; S64.11XA Injury of median nerve at wrist and hand level of right arm, initial encounter; S52.124A Nondisplaced fracture of head of right radius, initial encounter for closed fracture; W12.XXXA Fall on and from scaffolding, initial encounter; Y99.0 Civilian activity done for income or pay